=== PATIENT | female | born 1980 | race Caucasian/White ===

== ENCOUNTER 2021-02-12 17:22 | Emergency (ER) | payer OTHER ==
[2021-02-12 17:30] VITALS: BP 157/105
[2021-02-12] MEDS ORDERED: BENZONATATE 100 MG CAPSULE PO STA (17:40)
[2021-02-12] MEDS ORDERED: guaiFENesin/CODEINE 5 ML UDC PO STA (17:40)
--- NOTE | 2021-02-12 17:41 | ED Physician Documentation ---
PD HPI URI - Stated complaint Stated Complaint: COUGH - Chief complaint Chief Complaint: Resp - History obtained from History obtained from: Patient - Additional information Additional information: 40-year-old woman with history of asthma has had a cough for 2 weeks. It is nonproductive. It was worse today. it is not associated with shortness of breath, or fevers. No other URI symptoms. No possibility of . She is vaccinated against Covid. Review of Systems Constitutional: denies: Fever, Chills Ears: denies: Loss of hearing, Ear pain Nose: denies: Rhinorrhea / runny nose Throat: denies: Sore throat PD PAST MEDICAL HISTORY - Past Medical History Past Medical History: Yes Cardiovascular: None Respiratory: Asthma, Pneumonia Neuro: None Endocrine/Autoimmune: None GI: None SHOTBLASTER: Other : None HEENT: None Psych: ADD/ADHD Musculoskeletal: None Derm: None Other Past Medical History: PCOS - Past Surgical History Past Surgical History: Yes HEENT: Other - Present Medications Home Medications: Ambulatory Orders Medication Instructions Recorded Confirmed Benzonatate [Tessalon] 200 mg PO QID PRN #20 cap 02/12/21 Dextroamphetamine/Amphetamine 10 mg PO BID 02/12/21 02/12/21 [Dextroamp-Amphetamine 5 mg Tab] - Allergies Allergies/Adverse Reactions: Allergies Allergy/AdvReac Type Severity Reaction Status Date / Time No Known Drug Allergies Allergy Verified 02/12/21 17:25 - Social History Does the pt smoke?: No Smoking Status: Former smoker Does the pt drink ETOH?: No Does the pt have substance abuse?: No - Immunizations Immunizations are current?: Yes PD ED PE NORMAL - Vitals Vital signs reviewed: Yes - General General: Alert and oriented X 3, No acute distress - Cardiac Cardiac: RRR, No murmur - Respiratory Respiratory: No respiratory distress, Other (Frequent bronchitic coughing, m ildly diminished at the bases without other focal findings. Nonlabored.) - Derm Derm: No rash - Neuro Neuro: Alert and oriented X 3, Normal speech Results - Vitals Vitals: Vital Signs - 24 hr 02/12/21 17:26 Temperature 36.3 C L Heart Rate 77 Respiratory 20 Rate Blood Pressure 157/105 H O2 Saturation 99 Oxygen O2 Source Room air - Rads (name of study) 2v chest Radiology: EMP read contemporaneously (NAD) PD MEDICAL DECISION MAKING - ED course ED course: 40-year-old woman with cough, nothing too concerning in the history or physical but the time course suggest the need for a chest x-ray which is unremarkable. She felt better after Tessalon and codeine but did not want a prescription for the codeine. Departure - Departure Disposition: Home, Self Care Clinical Impression: Cough Condition: Good Record reviewed to determine appropriate education?: Yes Instructions: ED Upper Resp Infec No Abx Tx Prescriptions: Benzonatate [Tessalon] 200 mg PO QID PRN #20 cap PRN Reason: Cough Comments: Follow-up with your doctor at the end of the week if not better, return for new or worsening symptoms.
--- NOTE | 2021-02-12 18:10 | XRAY Report ---
PROCEDURE: Chest 2 View X-Ray INDICATIONS: cough TECHNIQUE: 2 views of the chest. COMPARISON: None. FINDINGS: Surgical changes and devices: None. Lungs and pleura: No pleural effusions or pneumothorax. Lungs are clear. Mediastinum: Mediastinal contours are normal. Heart size is normal. Bones and chest wall: No suspicious bony abnormalities. Soft tissues appear unremarkable. IMPRESSION: No acute cardiopulmonary abnormality. Reviewed by: Sean Menchaca MD on 02/12/2021 6:09 PM [facility] Approved by: Sean Menchaca MD on 02/12/2021 6:09 PM [facility] Station ID: [id number]
== END 2021-02-12 18:00 | disposition home or self-care (01) ==
LOC: ED 17:22
DX: R05.9 Cough, unspecified (principal); Z87.891 Personal history of nicotine dependence
CPT/HCPCS: 71046; 99282; 99283; A9270

== ENCOUNTER 2021-07-30 12:47 | Outpatient (CLI) | payer OTHER ==
--- NOTE | 2021-07-30 14:23 | MRI Report ---
PROCEDURE: Knee LT W/O INDICATIONS: KNEE PAIN TECHNIQUE: Noncontrast sagittal PD fast spin echo and T2 fast spin echo with fat saturation, sagittal 3-D gradie nt sequence with fat saturation; coronal T1 spin echo and PD fast spin echo with fat saturation, and axial PD fast spin echo with fat saturation through the knee. COMPARISON: None. FINDINGS: Image quality: Excellent. Menisci: The medial and lateral menisci demonstrate normal morphology and internal signal. The meni scal root ligaments appear intact. Cruciate ligaments: The anterior and posterior cruciate ligaments appear intact. Medial structures: The medial collateral ligament appears intact. The posterior oblique ligament, s emimembranosus tendon insertions, and oblique popliteal ligament, and meniscocapsular junction appear intact. Visualized portions of the pes anserinus tendons appear normal. No abnormal bursal fluid. Lateral structures: The lateral collateral ligament, long and short heads of the biceps femoris tend on appear intact. The popliteus tendon appears normal; the popliteofibular ligament appears intact. The posterosuperior and anteroinferior popliteomeniscal fascicles appear intact. The arcuate and fa bellofibular ligaments appear intact, around the lateral inferior geniculate artery. Iliotibial band appears normal. Anterior structures: The quadriceps and patellar tendons appear intact. Patellar alignment is leigha l. No femoral trochlear dysplasia or ventral trochlear prominence. No edema in the infrapatellar fa t pad. Bones and cartilage: No bone marrow contusions or fractures. There is moderate subchondral degenera tive marrow edema within the lateral patellar facet. Small focal region of moderate to high-grade art icular cartilage loss overlies the lateral patellar facets spanning roughly 3 mm. Mild diffuse articu lar cartilage loss overlies the weightbearing aspects of the medial femoral condyle and medial tibial plateau. Joint space: There is physiologic knee joint fluid. No Larsen's cyst. Normal appearing synovial pli are incidentally noted. IMPRESSION: 1. No internal derangement. 2. Medial and patellofemoral compartment articular cartilage loss. There is subchondral degenerative marrow edema within the lateral patellar facet. Reviewed by: Sandra Fernandes MD on 07/30/2021 2:21 PM PDT Approved by: Sandra Fernandes MD on 07/30/2021 2:21 PM PDT Station ID: [id number]
== END 2021-07-30 12:48 | disposition home or self-care (01) ==
LOC: DI 12:47
DX: M23.92 Unspecified internal derangement of left knee (principal); R60.0 Localized edema

== ENCOUNTER 2022-06-12 09:26 | Outpatient (CLI) | payer OTHER ==
[2022-06-12 10:24] VITALS: BP 124/78
--- NOTE | 2022-06-12 10:24 | SLEEP CARE CONSULTATION ---
Information from patient questionnaire entered by Geneva Hargrove. I have reviewed and concur with the information entered by Geneva Hargrove. This document represents the service I personally performed and the decisions made by me, Merary Crespo ARNP. History of Present Illness Service Date and Time: 06/12/2022925 Reason for Visit: New patient, sleep apnea on CPAP therapy Chief Complaint: reports: Unrefreshed sleep, Excessive daytime sleepiness, Fatigue, Frequent awakenings at night, Other (WAKE UP COUGHING FOR THE LAST 3MONTHS) Date of Onset: CURRENT SYMPTOMS LAST THREE MONTHS OVER SYMPTOMS 5YRS Usual bedtime: 9PM Time it takes to fall asleep: 30+MINS Observed to quit breathing while asleep: Yes Sleeps alone due to snoring: No Number of times waking at night: 2-3 Reasons for waking at night: reports: Choking, Bathroom, Other (COUGHING, EXCESSIVE NIGHTMARES ) Toss, Turn, or Twitch while sleeping: Yes Recalls having dreams: Yes Usually gets out of bed at: 4AM Feels refreshed in the morning: No Morning headache: Yes (END OF DAY) Sleepy or fatigued during the day: Yes Ever fallen asleep while driving: No Takes day naps: No Prior sleep studies: Yes Year and Where: [facility] Additional HPI information: ERWIN DE LEÓN was previously diagnosed to have mild, AHI 2.5 with RDI 13.9, upper airway resistance syndrome and comes in today to establish care for CPAP therapy. She states she has been on a CPAP since 2019. - Parasomnia Symptoms Ever been unable to move upon waking from sleep: No Walks in sleep: No Talks in sleep: Yes Ever acted out dreams in sleep: No Ever felt weak in the knees when startled or emotional: No Bothered by creepy, crawly, restless sensations in legs: Yes Problems with memory or concentration: Yes CPAP Compliance Data - Data Reviewed with Patient Average duration of nightly device use: 7 hours 16 minutes Compliance rate %: 96.7 ( days used) Current pressure setting (cmH2O): 6-12 Average residual AHI: 1.3 Central apnea: 0 Obstructive apnea: 0.5 Hypopnea: 0.8 Average large leak: 0 Compliance data discussion: She has a Dreamstation that is on recall and is registered. She is with [employer] for her supplies. She uses a Dreamwear nasal cushion mask. She does have a Resmed AirMini but does not like the headgear/mask that it comes with. Subjective Patient concerns: denies: aerophagia, mask discomfort, air blowing in eyes, mask leak noise, condensation in mask/hose, nasal congestion, dry mouth, nose, throat, epistaxis Observed to snore while using device: No Current pressure setting perceived as: comfortable On therapy, patient: reports: sleeping better, awakening more refreshed, being more awake and alert during the day, more rested overall. denies: drowsiness while driving Initial [place] Sleepiness Scale score: 8 (04/14/22) Past Medical History Past Medical History: reports: Hypertension, Arthritis, Insulin resistance, Anxiety, Asthma, GERD, Attention deficit, Other (PCOS, SLEEP APNEA; RLS) Social History The patient's occupation is a AM. Patient is and lives in . Have you smoked in the past 12 months: No Alcohol use: Yes Alcohol amount and frequency: 1 GLASS OF WINE 1 X WEEK Caffeine use: Yes Caffeine amount and frequency: 1 CUP COFFEE DAILY Family History Family history of sleep disordered breathing: Yes Family Hx Sleep Apnea: Mother: Snoring, Sibling: Snoring Allergies and Home Medications Known drug allergies: No Drug allergies reviewed: Yes Home medication list reviewed: Yes (updated listed in EMR) Allergy and home medication list: Allergies No Known Drug Allergies Allergy (Verified 06/11/22 15:34) Review of Systems Weight gain over past 5 years: 25, fluctuates and on upside right now Weight loss over past 5 years: 25 Cardiovascular: reports: high blood pressure Respiratory: reports: chronic cough (URI/chronic sinus issues related) Gastrointestinal: reports: heartburn Neurological: reports: headaches Psychiatric: reports: Attention Deficit Hyperactivity, anxiety. denies: depression Ear/Nose/Throat: reports: sinus problems, tonsillectomy, wisdom teeth removed Endocrine: denies: thyroid disease Immunologic: reports: allergies to food or environment (seasonal) Physical Exam Vital signs obtained and entered by: GENEVA Rubin MA Blood Pressure: 124/78 (LEFT ARM) Cuff size: regular Heart Rate: 92 O2 Saturation: 96 Height: 4 ft 11 in Weight: 177 lb Body Mass Index: 35.7 BMI Classification: Obese Neck circumference: 14.75 Heart: regular rate and rhythm Lungs: clear bilaterally Impression and Plan 1. Upper Airway Resistance Syndrome, mild, with good treatment compliance and good apnea control. On CPAP therapy, the patient has better sleep quality and is more rested overall. Patient has significant improvement of AHI and is satisfied with current CPAP therapy. Patient denies problems with oral dryness, nasal congestion, epistaxis, skin irritation or aerophagia. She states she still wakes up tired due to restless legs and multiple wakeups at night. I advised her to see her primary doctor to rule out causes of night leg movements prior to starting her on medications for RLS. She voiced understanding and agreement. Patient's apnea severity and rationale for treatment to reduce apnea, improve sleep quality and reduce cardiovascular and cerebrovascular events was reviewed. I also reviewed the benefit of consistent device use of CPAP for hypertension, insulin resistance, gastric reflux and attention deficit. Patient has a Dreamstation that she did register for the recall but has not received a replacement yet. She was advised to check back with [employer] on the status of her claim. Patient denies any black particles seen in machine or hoses, any unusual odors coming from device. Patient has not experienced any physical symptoms such as upper airway irritation, headache, skin or eye irri tation, asthma, nausea/vomiting, difficulty breathing or chest pain. If patient is not able to sleep due to waking up choking, gasping for air or other respiratory distress that they may decide to continue using it until it is either replaced or repaired. Patient does have a portable machine that she can use instead of her recalled device should she see any indicators of debris in the machine. Patient voiced understanding and agreement with plan. 2. Obesity, unspecified. Currently patients BMI is 35.7. Obesity increases the risk of apnea, CPAP pressure requirements and overall health risks especially cardiovascular and diabetes. Thus patient is advised to lose weight. * Continue auto CPAP pressure at 6-12 cmH2O * Update supplies * Notify me if snoring with mask or feeling that the pressure is too much or too little * Attempt to lose weight * Call this office if any problems using CPAP * Return for follow up in 1 year, or sooner if concerns arise Counseling Topics: Weight loss health impact Visit Type: In Office Time Spent with Patient (minutes): 38 Provider Statement: I spent 100% of the Face to Face Visit with the patient with greater than 50% spent counseling the patient and coordination of care.
== END 2022-06-12 09:27 | disposition home or self-care (01) ==
LOC: SC 09:26
PROVIDERS: ATTEND Nurse Practitioner Family
DX: G47.8 Other sleep disorders (principal); E66.9 Obesity, unspecified; Z68.35 Body mass index [BMI] 35.0-35.9, adult
CPT/HCPCS: 99203; 99212

== ENCOUNTER 2022-07-23 09:12 | Outpatient (CLI) | payer OTHER | END 2022-07-23 09:13 | disposition home or self-care (01) | LOC: RT 09:12 | DX: J40 Bronchitis, not specified as acute or chronic (principal); Z87.891 Personal history of nicotine dependence | CPT/HCPCS: 94010; 94727; 94729 ==

== ENCOUNTER 2023-03-19 09:26 | Outpatient (CLI) | payer OTHER ==
--- NOTE | 2023-03-19 09:56 | Sleep Patient Instructions ---
Sleep Center Visit Summary - Patient Visit Information Reason for Visit: 10-month follow-up - Patient Instructions Additional Instructions: You were here for follow up of CPAP therapy. You will be continued on CPAP therapy with pressure at 6-12 cmH2O. I will update your machine and supply prescription. Your supplier should reach out to you to set you up with new CPAP. You should follow up with sleep care one month after obtaining new CPAP. You may contact us sooner for any questions or concerns. - Clinic Information Contact: [facility] [address] [place] [id number] [email or web address] T: [phone]
--- NOTE | 2023-03-19 10:00 | SLEEP CARE CONSULTATION ---
Information from patient questionnaire entered by Berenice Hargrove. I have reviewed and concur with the information entered by Berenice Hargrove. This document represents the service I personally performed and the decisions made by me, Merary Crespo ARNP. History of Present Illness Service Date and Time: 03/19/2023925 Previous diagnosis: Mild, Other (Upper Airway Resistance Syndrome) AHI: 2.5 (with RDI 13.9; in 2008) Reason for follow up: other (10MONTH F/U) Equipment type: CPAP (Dreamstaion (not refurbished) SD NEEDED) Equipment obtained from: Other ([employer], getting supplies) Mask style: Nasal Mask brand: Respironics (Dreamwear, small cushion) Backup mask available: Yes Last cushion change: couple weeks Prior sleep studies: Yes Year and Where: [facility] additional information: ERWIN DE LEÓN was diagnosed to have mild, AHI 2.5 with RDI 13.9, upper airway resistance syndrome and returned today for CPAP therapy 10 month follow-up. Sleep Study - Results Prior sleep studies: Yes Year and Where: [facility] CPAP Compliance Data - Data Reviewed with Patient Average duration of nightly device use: 7 hours 38 minutes Compliance rate %: 84.3 (158/185 days used) Current pressure setting (cmH2O): 6-12 Average residual AHI: 0.6 Average large leak: 0 secs Subjective Missed days of use due to: reports: travel (using her [employer]) Patient concerns: reports: other (increased wakeups at night; improved with tightening mask ). denies: aerophagia, air blowing in eyes, mask leak noise, condensation in mask/hose, nasal congestion, dry mouth, nose, throat, epistaxis Observed to snore while using device: No Current pressure setting perceived as: comfortable On therapy, patient: reports: sleeping better, awakening more refreshed, being more awake and alert during the day, more rested overall. denies: drowsiness while driving Initial [place] Sleepiness Scale score: 8 (04/14/22) Current [place] Sleepiness Scale score: 7 Allergies and Home Medications Known drug allergies: No Drug allergies reviewed: Yes Home medication list reviewed: Yes (Amlodipine 10 mg daily, Strattera 60 mg daily) Allergy and home medication list: Allergies No Known Drug Allergies Allergy (Verified 03/18/23 12:56) Review of Systems Review of systems same as previous: Yes (hypertension) Physical Exam Vital signs obtained and entered by: SIOBHAN TODD Blood Pressure: 122/78 Cuff size: wrist (right) Heart Rate: 97 O2 Saturation: 98 Height: 4 ft 11 in Weight: 187 lb 6.4 oz Body Mass Index: 37.8 BMI Classification: Obese Impression and Plan 1. Upper Airway Resistance Syndrome, mild, with good treatment compliance and good apnea control. On CPAP therapy, the patient has better sleep quality and is more rested overall. Patient still has her DreamStation that has not been replaced by [employer]. She states her registered at and his own but she never got a replacement even when he did. She does have insurance which may replace the device. I will order a replacement device for her recalled CPAP and have her follow-up for compliance visit. Compliance guidelines for new device and follow up discussed. Patient's apnea severity and rationale for treatment to reduce apnea, improve sleep quality and reduce cardiovascular and cerebrovascular events was reviewed. I also reviewed the benefit of consistent device use of CPAP for hypertension, insulin resistance (PCOS), gastric reflux, anxiety, attention deficit and RLS. 2. Obesity, unspecified. Currently patients BMI is 37.8. Obesity increases the risk of apnea, CPAP pressure requirements and overall health risks especially cardiovascular and diabetes. Thus patient is advised to lose weight. * Continue auto CPAP pressure at 6-12 cmH2O * Update machine * Update supply prescription * Notify me if snoring with mask or feeling that the pressure is too much or too little * Attempt to lose weight * Call this office if any problems using CPAP * Return for follow up one month after obtaining new CPAP, or sooner if concerns arise Counseling Topics: Spare mask, Weight loss health impact Prescriptions: Auto CPAP, Device supplies Follow up with Sleep Care in: other (one month after obtaining new device, compliance visit) Visit Type: In Office Time Spent with Patient (minutes): 26 Provider Statement: I spent 100% of the Face to Face Visit with the patient with greater than 50% spent counseling the patient and coordination of care.
[2023-03-19 10:08] VITALS: BP 122/78; O2SAT 98
== END 2023-03-19 09:27 | disposition home or self-care (01) ==
LOC: SC 09:26
PROVIDERS: ATTEND Nurse Practitioner Family
DX: G47.8 Other sleep disorders (principal); E66.9 Obesity, unspecified; Z68.37 Body mass index [BMI] 37.0-37.9, adult
CPT/HCPCS: 99212; 99213